=== PATIENT | female | born 1955 | race Two or more races ===

== ENCOUNTER 2020-10-16 14:29 | Outpatient (REF) | payer MEDICARE, MEDICAID, SELFPAY ==
--- NOTE | ~2020-10-16 | XR_ITS ---
EXAMINATION: XR WRIST, RIGHT CLINICAL INFORMATION: Right wrist pain. COMPARISON: None TECHNIQUE: PA, lateral, and oblique views of the right wrist through an overlying cast. FINDINGS: Comminuted and displaced distal radial fracture with multiple fracture fragments which appear displaced proximally. The fracture lines contact the radiocarpal articular surface. Widening of the scapholunate interval, consistent with a scapholunate ligament tear. Evaluation limited by the overlying cast. XR/XR wrist RT min 3V IMPRESSION: Comminuted and displaced distal radial fracture with extension of the fracture lines to the radiocarpal articular surface. Widening of the scapholunate interval, consistent with a scapholunate ligament tear.
== END 2020-10-16 14:30 | disposition home or self-care (01) ==
LOC: HO.HOSX 14:29
PROVIDERS: Visit Provider Orthopaedic Surgery
DX: S52.501A Unspecified fracture of the lower end of right radius, initial encounter for closed fracture (principal); Z79.891 Long term (current) use of opiate analgesic; X58.XXXA Exposure to other specified factors, initial encounter; Y93.9 Activity, unspecified; Y92.9 Unspecified place or not applicable; Y99.9 Unspecified external cause status
CPT/HCPCS: 25600; 73110; 99202